=== PATIENT | female | born 1980 | race Caucasian/White ===

== ENCOUNTER 2018-06-22 09:38 | Emergency (ER) | payer BC, OTHER ==
[2018-06-22 09:48] VITALS: BP 126/76
--- NOTE | 2018-06-22 09:50 | UC ---
Respiratory Complaint HPI - HPI Summary HPI Summary: 37 yo female presents with mild earache, sinus congestion, and dry cough for the last month. She has been taking ibuprofen for her symptoms. About a week ago she felt very fatigued and had body aches, thinks she may have had the flu. She denies a fever at any point. Denies sore throat, SOB, abdominal pain, n/v, dysuria, or rash. - History of Current Complaint Chief Complaint: UCRespiratory Stated Complaint: COUGH,BODY ACHES Time Seen by Provider: 06/22/18 09:50 Hx Obtained From: Patient Hx Last Menstrual Period: 06/22/18 Onset/Duration: Gradual Onset Severity Initially: Mild Severity Currently: Mild Pain Intensity: 4 Pain Scale Used: 0-10 Numeric Character: Cough: Nonproductive - Allergies/Home Medications Allergies/Adverse Reactions: Allergies Allergy/AdvReac Type Severity Reaction Status Date / Time amoxicillin Allergy Hives Verified 06/22/18 09:48 [email or web address] [From Cefzil] Allergy Hives Verified 06/22/18 09:48 Home Medications: Home Medications NK [No Home Medications Reported] 06/22/18 [History Confirmed 06/22/18] PMH/Surg Hx/FS Hx/Imm Hx - Additional Past Medical History Additional PMH: None - Surgical History Surgical History: Yes Surgery Procedure, Year, and Place: Appendectomy 1997 - Family History Known Family History: Positive: None - Social History Occupation: Employed Full-time Lives: With Family Alcohol Use: Occasionally Substance Use Type: None Smoking Status (MU): Never Smoked Tobacco Review of Systems All Other Systems Reviewed And Are Negative: Yes Constitutional: Positive: Negative Skin: Positive: Negative Eyes: Positive: Negative ENT: Positive: Ear Ache, Nasal Discharge, Sinus Congestion Respiratory: Positive: Cough Cardiovascular: Positive: Negative Gastrointestinal: Positive: Negative Neurovascular: Positive: Negative Neurological: Positive: Negative Psychological: Positive: Negative Physical Exam - Summary Physical Exam Summary: GENERAL: NAD. WDWN. No pain distress. SKIN: No rashes, sores, lesions, or open wounds. HEENT: Head: AT/NC Eyes: EOM intact. Conjunctiva clear without inflammation or discharge. Ears: Hearing grossly normal. TMs intact, no bulging, erythema, or edema. Nose: Nasal mucosa pink and moist. NTTP maxillary and frontal sinus. Throat: Posterior oropharynx without exudates, erythema, or tonsillar enlargement. Uvula midline. NECK: Supple. Nontender. No lymphadenopathy. CHEST: CTAB. No r/r/w. No accessory muscle use. Breathing comfortably and in no distress. CV: RRR. Without m/r/g. Pulses intact. Cap refill <2seconds NEURO: Alert. PSYCH: Age appropriate behavior. Triage Information Reviewed: Yes Vital Signs: Initial Vital Signs Temp 98.3 F 06/22/18 09:44 Pulse 73 06/22/18 09:44 Resp 18 06/22/18 09:44 BP 126/76 06/22/18 09:44 Pulse Ox 99 06/22/18 09:44 Vital Signs Reviewed: Yes Diagnostic Evaluation - Laboratory O2 Sat by Pulse Oximetry: 99 Respiratory Course/Dx - Course Course Of Treatment: POC flu negative. Suspect viral illness vs allergies. Advised to continue ibuprofen and try OTC mucinex/flonase. - Differential Dx/Diagnosis Provider Diagnosis: Viral syndrome Discharge - Sign-Out/Discharge Documenting (check all that apply): Patient Departure All imaging exams completed and their final reports reviewed: No Studies - Discharge Plan Condition: Stable Disposition: HOME Patient Education Materials: Rhinosinusitis (DC), Viral Syndrome (ED) Referrals: Bessy Youssef NP [Primary Care Provider] - Additional Instructions: If you develop a fever, shortness of breath, chest pain, new or worsening symptoms - please call your PCP or go to the ED. Try over the counter MUCINEX and FLONASE for your symptoms. - Billing Disposition and Condition Condition: STABLE Disposition: Home
== END 2018-06-22 10:38 | disposition home or self-care (01) ==
LOC: UCEAST 09:38
DX: B34.9 Viral infection, unspecified (principal); Z88.1 Allergy status to other antibiotic agents; Z88.0 Allergy status to penicillin
CPT/HCPCS: 99211; G0463